=== PATIENT | male | born 2000 | race Caucasian/White ===

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

== ENCOUNTER 2021-09-02 11:46 | Emergency (ER) | payer MEDICAID ==
[~2021-09-02] VITALS: Ht 167.6 cm; Wt 56.9 kg
--- NOTE | 2021-09-02 11:46 | NUR ---
Terence pena in [facility] - 09/02/21 at 1247 by CARLOS MANUEL URINE SPECIMENT COLLECTED AND SENT TO LAB
--- NOTE | 2021-09-02 11:50 | NUR ---
WAS AT BEDSIDE.
--- NOTE | 2021-09-02 11:55 | NUR ---
IV WAS PLACED ON THE L AC. LABS WERE DRAWN AND SENT.
--- NOTE | 2021-09-02 12:19 | NUR ---
BIBS FOR C/O LLQ ABDOMINAL PAIN 05/13, PAIN GETS WORST WHEN WALKING. C/O NAUSEA. ABDOMEN SOFT AND NON-DISTENDED. WILL CONTINUE TO MONITOR THE PATIENT.
[2021-09-02] MEDS ORDERED: IOHEXOL-300 100 ML VIAL IV ONE (12:26)
[2021-09-02] MEDS ORDERED: CT SWABBABLE VALVE TRANS SET 1 EA INFUS.SET MC ONE (12:27)
[2021-09-02] MEDS ORDERED: IV NS 0.9% 250 ML IV ONE (12:27)
[2021-09-02 12:34] LABS: BASOPHILS % (AUTO) 0.7 % (0.0-2.0); EOSINOPHILS % (AUTO) 0.9 % (0.0-6.0); HEMATOCRIT 45 % (39-51); HEMOGLOBIN 15.2 g/dL (13.5-17.5); LYMPHOCYTES # (AUTO) 1.4 K/uL (0.8-4.8); MEAN CORPUSCULAR HGB CONC 34 g/dl (31.0-36.0); MEAN CORPUSCULAR VOLUME 86 fL (80-96); MONOCYTES # (AUTO) 0.3 K/uL (0.1-1.30); MONOCYTES % (AUTO) 7.1 % (2.0-12.0); NEUTROPHILS # (AUTO) 2.7 K/uL (1.8-8.9); NEUTROPHILS % (AUTO) 60.3 % (43.0-81.0); PLATELET COUNT (AUTO) 262 K/uL (150-450); RED BLOOD CELL COUNT(AUTO) 5.26 MIL/uL (4.5-6.0); WHITE BLOOD COUNT (AUTO) 4.6 K/uL (4.3-11.0)
[2021-09-02 12:48] LABS: CREATININE 0.8 mg/dL (0.6-1.3); POTASSIUM 3.8 mmol/L (3.5-5.1)
[2021-09-02 12:53] LABS: ALBUMIN 4.3 g/dL (3.4-5.0); BILIRUBIN,DIRECT 0.2 mg/dL (0.0-0.2); BILIRUBIN,TOTAL 1.1 mg/dL (0.2-1.0)
[2021-09-02] MEDS ORDERED: IBUP-1953 PO (13:46)
[2021-09-02] MEDS ORDERED: IBUPROFEN 600 MG TABLET ONE (13:49)
[2021-09-02] MEDS ORDERED: IBUPROFEN 600 MG TABLET PO ONE (14:00)
[2021-09-02 14:03] VITALS: BP 120/63
--- NOTE | 2021-09-02 14:03 | NUR ---
The patient is alert and oriented x4. IV removed. Catheter intact and site benign. Pressure and 4x4 applied to site. No bleeding noted.Patient discharged to home in stable condition. Written and verbal after care instructions given. Patient verbalizes understanding of instruction.
== END 2021-09-02 14:03 | disposition home or self-care (01) ==
LOC: ER 11:49
DX: R10.32 Left lower quadrant pain (principal); Z90.89 Acquired absence of other organs
CPT/HCPCS: 36415; 74177; 80048; 80076; 83690; 85025; 99285; J7050; Q9967

== ENCOUNTER 2022-08-17 14:51 | Emergency (ER) | payer MEDICAID ==
[~2022-08-17] VITALS: Ht 167.6 cm; Wt 54.4 kg
[~2022-08-17 14:51] MED LIST: IBUP-1953 PO
[2022-08-17 15:17] VITALS: BP 118/65
[2022-08-17] MEDS ORDERED: KETO10TA2 PO (16:09)
[2022-08-17] MEDS ORDERED: DEXAMETHASONE SOD PHOSPHATE 10 MG/ML VIAL ONE (16:16)
--- NOTE | 2022-08-17 16:26 | NUR ---
Patient discharged to home in stable condition. Written and verbal after care instructions given. Patient verbalizes understanding of instruction.
[2022-08-17] MEDS ORDERED: DEXAMETHASONE SOD PHOSPHATE 10 MG/ML VIAL MC ONE (16:30)
== END 2022-08-17 16:27 | disposition home or self-care (01) ==
LOC: ER 14:53
DX: J02.9 Acute pharyngitis, unspecified (principal); Z90.89 Acquired absence of other organs; Z79.899 Other long term (current) drug therapy
CPT/HCPCS: 99283; J1100

== ENCOUNTER 2023-02-23 20:26 | Emergency (ER) | payer MEDICAID ==
[~2023-02-23] VITALS: Ht 165.1 cm; Wt 53.5 kg
[~2023-02-23 20:26] MED LIST changes: +KETO10TA2 PO
--- NOTE | 2023-02-23 21:15 | NUR ---
BIBS. TO ER BED 11. AAOX4/ NOT IN RESP DISTRESS. AMBUALTORY. CAME IN FOR CHEST PAIN NON RADIATING WITH COUGH AND SOB X 1 WEEK. MD WAS AT THE BEDSIDE.
--- NOTE | 2023-02-23 21:15 | NUR ---
BIBS. TO ER BED 11. AAOX4/ NOT IN RESP DISTRESS. AMBUALTORY. CAME IN FOR CHEST PAIN NON RADIATING
--- NOTE | 2023-02-23 21:20 | NUR ---
EMT AT [facility] FOR EKG
--- NOTE | 2023-02-23 21:34 | NUR ---
ENROLLMENT MANAGEMENT VICE PRESIDENT AT BEDSIDE
[2023-02-23] MEDS ORDERED: NABU-141 PO (22:49)
--- NOTE | 2023-02-23 23:28 | NUR ---
Patient discharged to home in stable condition. Written and verbal after care instructions given. Patient verbalizes understanding of instruction. Pt ambulatory with a steady gait
[2023-02-23 23:34] VITALS: BP 110/60
== END 2023-02-23 23:35 | disposition home or self-care (01) ==
LOC: ER 20:32
DX: B34.9 Viral infection, unspecified (principal); I31.9 Disease of pericardium, unspecified; R07.89 Other chest pain; Z90.49 Acquired absence of other specified parts of digestive tract; Z79.899 Other long term (current) drug therapy
CPT/HCPCS: 36415; 71045-TC; 84484-TC

== ENCOUNTER 2024-11-26 02:56 | Emergency (ER) | payer MEDICAID ==
[~2024-11-26 02:56] MED LIST changes: +NABU-141 PO
== END 2024-11-26 04:46 | disposition left against medical advice (07) ==
LOC: ER 02:58
DX: R50.9 Fever, unspecified (principal); J02.9 Acute pharyngitis, unspecified; Z53.21 Procedure and treatment not carried out due to patient leaving prior to being seen by health care provider